=== PATIENT | female | born 1960 | race Caucasian/White ===

== ENCOUNTER 2016-03-23 01:21 | Inpatient (IN) | payer OTHER ==
[~2016-03-23] VITALS: Ht 175.3 cm; Wt 138.0 kg
[2016-03-23] VITALS (14 sets, daily range): BP systolic 122–160; BP diastolic 63–87; PULSE 60–91; RESP 18–46; TEMP 97.6–98.3; O2SAT 95–98
[~2016-03-23 01:21] MED LIST: CALC600T34 PO; CYMB60CA PO; GLUCTAB PO; IBUP800T23 PO; LISI40TA PO; TAB-TAB PO; TRAD5TAB PO
[2016-03-23] MEDS ORDERED: TRAD5TAB PO (01:38)
[2016-03-23] MEDS ORDERED: METF500T PO (01:38)
[2016-03-23] MEDS ORDERED: PROT40TA PO (01:38)
[2016-03-23] MEDS ORDERED: CYMB60CA PO (01:38)
[2016-03-23] MEDS ORDERED: ALPR.5 PO (01:38)
[2016-03-23] MEDS ORDERED: ONDANSETRON HCL 4 MG/2 ML VIAL IV ONE ×2 (01:45→02:30)
[2016-03-23] MEDS ORDERED: INSULIN HUMAN REGULAR 1,000 UNITS/10 ML VIAL IV PUSH ONE (01:45)
[2016-03-23] MEDS: SODIUM CHLOR 0.9% 1000 ML INJ 1,000 ML IV SCH ×2 (01:49→02:30)
[2016-03-23] MEDS ORDERED: SODIUM CHLOR 0.9% 1000 ML INJ 1,000 ML IV ONE (02:21)
--- NOTE | 2016-03-23 02:26 | PD ---
HPI Chief Complaint: Abnormal Results Time Seen by Provider: 01:42 Travel History International Travel<30 days: No Contact w/Intl Traveler<30days: No Traveled to known affect area: No History of Present Illness HPI The patient is a 56-year-old female with a history of diabetes mellitus controlled with Glucophage and Tradjenta who complains of nausea and vomiting Juan morning. She continued to come to work despite polyuria/polydipsia. She comes in [facility] with nausea and a blood sugar of about 500. She is a [facility] patient of Dr. Tamayo. She did not call Dr. Tamayo about this. She states she has never had diabetic ketoacidosis. She does complain of some leg cramps. The patient was on Invokana but this was discontinued 2 months ago because the insurance company had a $200 co-pay. PFSH Past Medical History Cancer: No Cardiovascular Problems: No Diabetes: Yes (TYPE II) Patient Takes Glucophage: Yes (03/22/16 AT 1930) Endocrine: Yes Genitourinary: No Hepatitis: No Hiatal Hernia: No Hypertension: Yes (PREVIOUSLY) Immune Disorder: No Medical other: Yes (FIBROMYALGIA) Musculoskeletal: No Neurologic: No Psychiatric: No Respiratory: No Thyroid Disease: No Tetanus Vaccination: > 5 Years Influenza Vaccination: Yes ?: Not Menopausal: Yes Past Surgical History Abdominal Surgery: Yes (CHOLECYSTECTOMY) Body Medical Devices: NONE Cardiac Surgery: No Section: Yes (X2) Ear Surgery: No Endocrine Surgery: No Eye Surgery: Yes (LASER BILATERAL EYES, IRIDECTOMY R EYE) Genitourinary Surgery: No Gynecologic Surgery: Yes ( X 2, TUBAL LIGATION) Joint Replacement: No Oral Surgery: No Pacemaker: No Thoracic Surgery: No Other Surgery: Yes Social History Alcohol Use: No Tobacco Use: No Substance Use: No Allergies-Medications (Allergen,Severity, Reaction): Coded Allergies: Penicillin (Verified Allergy, Severe, CLOSES THROAT, 03/23/16) Reported Meds & Prescriptions Reported Meds & Active Scripts Active Reported Xanax (Alprazolam) 0.5 Mg Tab 0.5 Mg PO Q8H PRN Protonix (Pantoprazole Sodium) 40 Mg Tab 40 Mg PO DAILY Metformin (Metformin HCl) 500 Mg Tab 500 Mg PO BIDPC With meals Tradjenta (Linagliptin) 5 Mg Tab 5 Mg PO DAILY Ivan DR (Duloxetine HCl) 60 Mg Capdr 60 Mg PO DAILY Review of Systems Except as stated in HPI: all other systems reviewed are Neg Physical Exam Narrative GENERAL: The patient appears moderately to severely dehydrated. She is alert and oriented 3 and cooperative. Her vital signs show blood pressure 155/87 but are otherwise normal. There is no ketotic smell to her breath. SKIN: Warm and dry. HEAD: Atraumatic. Normocephalic. EYES: Pupils equal and round. No scleral icterus. No injection or drainage. ENT: No nasal bleeding or discharge. Mucous membranes pink but dry. NECK: Trachea midline. No JVD. CARDIOVASCULAR: Regular rate and rhythm. No murmur appreciated. RESPIRATORY: No accessory muscle use. Clear to auscultation. Breath sounds equal bilaterally. GASTROINTESTINAL: Abdomen soft, to direct palpation, nondistended. Hepatic and splenic margins not palpable. No guarding or rebound is present. MUSCULOSKELETAL: No obvious deformities. No clubbing. No cyanosis. No edema. NEUROLOGICAL: Awake and alert. No obvious cranial nerve deficits. Motor grossly within normal limits. Normal speech. PSYCHIATRIC: Appropriate mood and affect; insight and judgment normal. Data Data Last Documented VS Vital Signs Date Time Temp Pulse Resp B/P Pulse Ox O2 Delivery O2 Flow Rate FiO2 03/23/16 03:12 86 18 144/77 98 Room Air 03/23/16 01:25 98.1 Orders Sodium Chlor 0.9% 1000 Ml Inj (Ns 1000 M (03/23/16 01:45) Ondansetron Inj (Zofran Inj) (03/23/16 01:45) Insulin Human Regular Inj (Novolin R Inj (03/23/16 01:45) Complete Blood Count With Diff (03/23/16 02:21) Comprehensive Metabolic Panel (03/23/16 02:21) Beta Hydroxybutyrate (Acetone) (03/23/16 02:21) Urinalysis - C+S If Indicated (03/23/16 02:21) Blood Glucose (03/23/16 02:21) Blood Glucose (03/23/16 02:51) Ecg Monitoring (03/23/16 02:21) Iv Access Insert/Monitor (03/23/16 02:21) Oximetry (03/23/16 02:21) NPO (03/23/16 02:21) Sodium Chloride 0.9% Flush (Ns Flush) (03/23/16 02:30) Sodium Chlor 0.9% 1000 Ml Inj (Ns 1000 M (03/23/16 02:21) Ondansetron Inj (Zofran Inj) (03/23/16 02:30) Prochlorperazine Inj (Compazine Inj) (03/23/16 03:15) Insulin Human Regular Inj (Novolin R Inj (03/23/16 03:30) Amylase (03/23/16 01:50) Lipase (03/23/16 01:50) Labs Laboratory Tests Test 03/23/16 01:50 White Blood Count 6.2 TH/MM3 Red Blood Count 5.22 MIL/MM3 Hemoglobin 13.2 GM/DL Hematocrit 41.3 % Mean Corpuscular Volume 79.0 FL Mean Corpuscular Hemoglobin 25.3 PG Mean Corpuscular Hemoglobin 32.1 % Concent Red Cell Distribution Width 13.5 % Platelet Count 226 TH/MM3 Mean Platelet Volume 10.3 FL Neutrophils (%) (Auto) 69.9 % Lymphocytes (%) (Auto) 20.9 % Monocytes (%) (Auto) 7.4 % Eosinophils (%) (Auto) 1.4 % Basophils (%) (Auto) 0.4 % Neutrophils # (Auto) 4.2 TH/MM3 Lymphocytes # (Auto) 1.3 TH/MM3 Monocytes # (Auto) 0.5 TH/MM3 Eosinophils # (Auto) 0.1 TH/MM3 Basophils # (Auto) 0.0 TH/MM3 CBC Comment DIFF FINAL Differential Comment Sodium Level 131 MEQ/L Potassium Level 4.2 MEQ/L Chloride Level 95 MEQ/L Carbon Dioxide Level 24.2 MEQ/L Anion Gap 12 MEQ/L Blood Urea Nitrogen 16 MG/DL Creatinine 1.10 MG/DL Estimat Glomerular Filtration 51 ML/MIN Rate Random Glucose 534 MG/DL Calcium Level 9.0 MG/DL Total Bilirubin 0.4 MG/DL Aspartate Amino Transf 38 U/L (AST/SGOT) Alanine Aminotransferase 62 U/L (ALT/SGPT) Alkaline Phosphatase 104 U/L Total Protein 8.5 GM/DL Albumin 3.4 GM/DL B-Hydroxybutyrate 0.43 MMOL/L [facility] Medical Decision Making Medical Screen Exam Complete: Yes Emergency Medical Condition: Yes Medical Record Reviewed: Yes Interpretation(s) The CBC is normal. The complete metabolic profile shows a sodium of 131, creatinine of 1.1, GFR 51, glucose of 534, AST of 38 and ALT of 62 with total protein of 8.5 but is otherwise normal. The beta hydroxybutyrate is 0.43. Differential Diagnosis Diabetes mellitus poor control, gastroenteritis, diabetic ketoacidosis, pancreatitis, dehydration, electrolyte disorder Narrative Course The patient has diabetes mellitus poor control. This may be as a result of the discontinuing of Invokana. He has intractable vomiting and is on Tradjenta so we will check her for pancreatitis. The patient appears to be moderate to severely dehydrated. Physician Communication Physician Communication I discussed the patient with Dr. Tamayo, the patient will be admitted to him. Diagnosis Primary Impression: Intractable vomiting with nausea Additional Impressions: Poorly controlled diabetes mellitus Moderate dehydration Admitting Information Admitting Physician Requests: Admit Piter Stallings MD Mar 23, 2016 02:26
[2016-03-23] MEDS ORDERED: SODIUM CHLORIDE 0.9% FLUSH 5 ML FLUSH IVF PRN (02:30)
[2016-03-23 02:35] LABS: AUTOMATED NEUTROPHIL # 4.2 TH/MM3 (1.8-7.7); BASOPHIL % 0.4 % (0.0-2.0); EOSINOPHIL # 0.1 TH/MM3 (0-0.4); EOSINOPHIL % 1.4 % (0.0-4.0); HEMATOCRIT 41.3 % (35.0-46.0); HEMO FLAGS DIFF FINAL; LYMPH % 20.9 % (9.0-44.0); LYMPHOCYTE # 1.3 TH/MM3 (1.0-4.8); MEAN CORPUSCULAR HEMOGLOBIN 25.3 PG (27.0-34.0); MEAN CORPUSCULAR HGB CONC 32.1 % (32.0-36.0); MONO % 7.4 % (0.0-8.0); NEUT % 69.9 % (16.0-70.0); PLATELET COUNT 226 TH/MM3 (150-450); RED BLOOD COUNT 5.22 MIL/MM3 (4.00-5.30); RED CELL DISTRIBUTION WIDTH 13.5 % (11.6-17.2); WHITE BLOOD COUNT 6.2 TH/MM3 (4.0-11.0)
[2016-03-23 02:42] LABS: CHLORIDE 95 MEQ/L (98-107); POTASSIUM 4.2 MEQ/L (3.5-5.1); SODIUM (NA) 131 MEQ/L (136-145)
[2016-03-23 02:46] LABS: ANION GAP 12 MEQ/L (5-15); BICARBONATE 24.2 MEQ/L (21.0-32.0); BLOOD UREA NITROGEN 16 MG/DL (7-18)
[2016-03-23 02:48] LABS: ALT (GPT) 62 U/L (10-53)
[2016-03-23 02:49] LABS: AST (GOT) 38 U/L (15-37); GLOMERULAR FILTRATION RATE 51 ML/MIN (>89)
[2016-03-23 02:50] LABS: TOTAL BILIRUBIN ADULT 0.4 MG/DL (0.2-1.0)
[2016-03-23 02:58] LABS: ALKALINE PHOSPHATASE 104 U/L (45-117)
[2016-03-23 03:00] LABS: BETA-HYDROXYBUTYRATE 0.43 MMOL/L (0.00-0.39)
[2016-03-23] MEDS ORDERED: PROCHLORPERAZINE INJ 10 MG/2 ML VIAL IVS ONE (03:15)
[2016-03-23] MEDS ORDERED: INSULIN HUMAN REGULAR 1,000 UNITS/10 ML VIAL IVP ONE ×2 (03:30→04:30)
[2016-03-23 03:58] LABS: AMYLASE 41 U/L (25-115)
[2016-03-23] MEDS: SODIUM CHLOR 0.45% 1000 ML INJ 1,000 ML IV SCH ×2 (05:30→18:09)
[2016-03-23] MEDS ORDERED: PROCHLORPERAZINE INJ 10 MG/2 ML VIAL IV PRN (05:30)
[2016-03-23] MEDS ORDERED: DEXTROSE 50% IN WATER 50 ML VIAL(D50) IV PUSH PRN (05:45)
[2016-03-23] MEDS ORDERED: GLUCAGON 1 MG/ML VIAL OTHER PRN (05:45)
[2016-03-23] MEDS: HIGH DOSE INSULIN NOVOLOG SUPPLEMENTAL SCALE SQ SCH ×4 (06:51→21:12)
[2016-03-23 09:03] LABS: BLOOD, URINE SMALL (NEG); KETONE, URINE NEG (NEG); NITRITE,URINE NEG (NEG); PH, URINE 5.5 (5.0-8.5)
[2016-03-23 09:08] LABS: GLUCOSE,URINE 1000 OR GREATER mg/dL (NEG); METHOD OF COLLECTION CLEAN CATCH; URINE COLOR YELLOW (YELLW/STRAW)
[2016-03-23 09:09] LABS: BACTERIA, URINE MANY /hpf; COMMENT (UR) CULTURE INDICATED; CULTURE IF INDICATED CULTURE INDICATED; SQUAMOUS EPITHELIAL CELL URINE 0-5 /hpf (0-5)
[2016-03-23] MEDS ORDERED: ALPRAZolam 0.5 MG TAB PO PRN (10:15)
--- NOTE | 2016-03-23 10:33 | HHI.HP ---
HPI Service [facility] Hospitalists Primary Care Physician Tamir Duke MD Admission Diagnosis intractable vomiting, dehydration, diabetes mellitus poor control Chief Complaint: 3 days abdominal pain with nausea and vomit Travel History International Travel<30 Days: No Contact w/Intl Traveler <30 Da: No Traveled to Known Affected Are: No History of Present Illness 56 y/o white female with hx diabetes on metformin and trajenat was on invokana with improvement but had to stop due to cost and blood sugar has gone up we will try and find one on formulary . Patient has complained of nausea and vomit with abdominal pain for 3 days not eating well no diarrhea ,presented to er found to have high glucose and continues to have above symptoms and had evidence of dehydration and admitted for fluids in review of er record does have uti as well which could be etiology of her symptoms . Review of Systems Gastrointestinal: COMPLAINS OF: Abdominal pain, Nausea, Vomiting Past Family Social History Past Medical History dm,htn,fibromyagia Past Surgical History gallbladder,irideitemy rt eye Reported Medications xanax,protonix,metformin,trajenat,cymbalta for fibromyalgia Allergies: Coded Allergies: Penicillin (Verified Allergy, Severe, CLOSES THROAT, 03/23/16) Social History NS,ND Physical Exam Vital Signs Vital Signs Date Time Temp Pulse Resp B/P Pulse Ox O2 Delivery O2 Flow Rate FiO2 03/23/16 08:00 97.9 60 22 136/70 95 03/23/16 06:00 77 03/23/16 05:00 91 03/23/16 04:44 83 18 96 03/23/16 04:14 82 18 122/63 97 Room Air 03/23/16 03:12 86 18 144/77 98 Room Air 03/23/16 02:33 18 96 Room Air 03/23/16 02:04 84 18 96 Room Air 03/23/16 02:00 86 18 158/78 96 Room Air 03/23/16 01:25 98.1 86 18 155/87 95 Physical Exam GENERAL: This is a well-nourished, well-developed patient, in no apparent distress. SKIN: No rashes, ecchymoses or lesions. Cool and dry. HEAD: Atraumatic. Normocephalic. No temporal or scalp tenderness. EYES: Pupils equal round and reactive. Extraocular motions intact. No scleral icterus. No injection or drainage. ENT: Nose without bleeding, purulent drainage or septal hematoma. Throat without erythema, tonsillar hypertrophy or exudate. Uvula midline. Airway patent. NECK: Trachea midline. No JVD or lymphadenopathy. Supple, nontender, no meningeal signs. CARDIOVASCULAR: Regular rate and rhythm without murmurs, gallops, or rubs. RESPIRATORY: Clear to auscultation. Breath sounds equal bilaterally. No wheezes , rales, or rhonchi. GASTROINTESTINAL: Abdomen soft, non-tender, nondistended. No hepato-splenomegaly , or palpable masses. No guarding. MUSCULOSKELETAL: Extremities without clubbing, cyanosis, or edema. No joint tenderness, effusion, or edema noted. No calf tenderness. Negative Homans sign bilaterally. NEUROLOGICAL: Awake and alert. Cranial nerves II through XII intact. Motor and sensory grossly within normal limits. Five out of 5 muscle strength in all muscle groups. Normal speech. Laboratory Laboratory Tests Test 03/23/16 03/23/16 01:50 08:45 White Blood Count 6.2 Red Blood Count 5.22 Hemoglobin 13.2 Hematocrit 41.3 Mean Corpuscular Volume 79.0 Mean Corpuscular Hemoglobin 25.3 Mean Corpuscular Hemoglobin 32.1 Concent Red Cell Distribution Width 13.5 Platelet Count 226 Mean Platelet Volume 10.3 Neutrophils (%) (Auto) 69.9 Lymphocytes (%) (Auto) 20.9 Monocytes (%) (Auto) 7.4 Eosinophils (%) (Auto) 1.4 Basophils (%) (Auto) 0.4 Neutrophils # (Auto) 4.2 Lymphocytes # (Auto) 1.3 Monocytes # (Auto) 0.5 Eosinophils # (Auto) 0.1 Basophils # (Auto) 0.0 CBC Comment DIFF FINAL Differential Comment Sodium Level 131 Potassium Level 4.2 Chloride Level 95 Carbon Dioxide Level 24.2 Anion Gap 12 Blood Urea Nitrogen 16 Creatinine 1.10 Estimat Glomerular Filtration 51 Rate Random Glucose 534 Calcium Level 9.0 Total Bilirubin 0.4 Aspartate Amino Transf 38 (AST/SGOT) Alanine Aminotransferase 62 (ALT/SGPT) Alkaline Phosphatase 104 Total Protein 8.5 Albumin 3.4 Amylase Level 41 Lipase 199 B-Hydroxybutyrate 0.43 Urine Collection Type CLEAN CATCH Urine Color YELLOW Urine Turbidity SLIGHT Urine pH 5.5 Urine Specific [place] 1.030 Urine Protein NEG Urine Glucose (UA) 1000 OR GREATER Urine Ketones NEG Urine Occult Blood SMALL Urine Nitrite NEG Urine Bilirubin NEG Urine Leukocyte Esterase TRACE Urine RBC 10-14 Urine WBC 50-99 Urine WBC Clumps MOD Urine Squamous Epithelial 0-5 Cells Urine Bacteria MANY Microscopic Urinalysis Comment CULTURE INDICATED Urine Collection Time 08:45 Date/Time Procedure Status Source Growth 03/23/16 08:45 Urine Culture Received Urine Clean Catch Pending Result Diagram: 03/23/16 0150 03/23/16 0150 Course admit from er Assessment and Plan Problem List: (1) Intractable vomiting with nausea Status: Acute Plan: receiving zofran feeling a little better will advance to full liquids and then 1800 ada (2) Moderate dehydration Status: Acute Plan: IV fluid (3) Poorly controlled diabetes mellitus Status: Chronic Plan: use sliding scale continue home meds will find med thru [facility] she can add (4) UTI (urinary tract infection) Status: Acute Plan: start levaquin 500 IV a day and can change to cipro as outpatient allergic to pcn Assessment and Plan as above Code Status full Discussed Condition With patient Physician Certification 2 Midnight Certification Type: Admission for Inpatient Services Order for Inpatient Services The services are ordered in accordance with Medicare regulations or non- Medicare payer requirements, as applicable. In the case of services not specified as inpatient-only, they are appropriately provided as inpatient services in accordance with the 2-midnight benchmark. Estimated LOS (days): 2 2 days is the estimated time the patient will need to remain in the hospital, assuming treatment plan goals are met and no additional complications. Post-Hospital Plan: Home Tamir Duke MD Mar 23, 2016 10:33
[2016-03-23] MEDS: LEVOFLOXACIN 500 MG PREMIX INJ 100 ML IV SCH (11:36)
--- NOTE | 2016-03-23 16:11 | RADHPO ---
EXAM DATE/TIME: 03/23/2016 15:37 [place] COMPARISON: No previous studies available for comparison. INDICATIONS : Flank pain, urinary tract infection. MEDICAL HISTORY : Diabetes mellitus type 2. Fibromyalgia. SURGICAL HISTORY : Cholecystectomy. section. Tubal ligation. Eye surgery. ENCOUNTER: Initial ACUITY: 1 day PAIN SCORE: 0/10 LOCATION: Bilateral flank MEASUREMENTS: RIGHT KIDNEY: 13.1 x 4.6 x 4.9 cm LEFT KIDNEY: 13.5 x 5.9 x 6.3 cm FINDINGS: RIGHT KIDNEY: Renal cortex is normal in thickness and echotexture. No hydronephrosis, stone, or mass. LEFT KIDNEY: Renal cortex is normal in thickness and echotexture. No hydronephrosis, stone, or mass. BLADDER: Within normal limits given the degree of distension. CONCLUSION: Normal examination for a patient of this age. Clyde Contreras MD on March 23, 2016 at 16:04 Board Certified Radiologist. This report was verified electronically.
[2016-03-23] MEDS ORDERED: traMADol HCL 50 MG TAB PO PRN (18:00)
[2016-03-23] MEDS: metFORMIN HCL 500 MG TAB PO SCH (18:09)
[2016-03-23] MEDS: traMADol HCL 50 MG TAB PO PRN (23:44)
[2016-03-24] VITALS: BP 135/57; PULSE 64; RESP 18; TEMP 98; O2SAT 95
[2016-03-24] MEDS: HIGH DOSE INSULIN NOVOLOG SUPPLEMENTAL SCALE SQ SCH ×3 (02:51→12:12)
[2016-03-24] MEDS: SODIUM CHLOR 0.45% 1000 ML INJ 1,000 ML IV SCH ×2 (02:52→11:30)
[2016-03-24 03:00] VITALS: BP 120/65; PULSE 61; RESP 18; TEMP 98.2; O2SAT 95
[2016-03-24 04:49] LABS: AUTOMATED NEUTROPHIL # 2.6 TH/MM3 (1.8-7.7); BASOPHIL % 0.6 % (0.0-2.0); EOSINOPHIL # 0.1 TH/MM3 (0-0.4); EOSINOPHIL % 2.5 % (0.0-4.0); HEMO FLAGS DIFF FINAL; LYMPH % 31.6 % (9.0-44.0); LYMPHOCYTE # 1.4 TH/MM3 (1.0-4.8); MEAN CELL VOLUME 78.6 FL (80.0-100.0); MEAN CORPUSCULAR HGB CONC 33.1 % (32.0-36.0); MONO % 7.2 % (0.0-8.0); NEUT % 58.1 % (16.0-70.0); PLATELET COUNT 199 TH/MM3 (150-450); RED BLOOD COUNT 4.33 MIL/MM3 (4.00-5.30); RED CELL DISTRIBUTION WIDTH 12.9 % (11.6-17.2); WHITE BLOOD COUNT 4.4 TH/MM3 (4.0-11.0)
[2016-03-24 05:09] LABS: BICARBONATE 26.8 MEQ/L (21.0-32.0); POTASSIUM 4.1 MEQ/L (3.5-5.1)
[2016-03-24] MEDS: traMADol HCL 50 MG TAB PO PRN (06:40)
--- NOTE | 2016-03-24 08:31 | HHI.DS ---
Discharge Summary Admission Date Mar 23, 2016 at 03:50 Admitting Diagnosis intractable vomiting, dehydration, diabetes mellitus poor control (1) Intractable vomiting with nausea (2) Moderate dehydration Diagnosis: Principal (3) Poorly controlled diabetes mellitus Diagnosis: Principal (4) UTI (urinary tract infection) Diagnosis: Principal Brief History 56 y/o white female with hx diabetes on metformin and trajenat was on invokana with improvement but had to stop due to cost and blood sugar has gone up we will try and find one on formulary . Patient has complained of nausea and vomit with abdominal pain for 3 days not eating well no diarrhea ,presented to er found to have high glucose and continues to have above symptoms and had evidence of dehydration and admitted for fluids in review of er record does have uti as well which could be etiology of her symptoms . CBC/BMP: 03/24/16 0435 03/24/16 0435 Significant Findings Laboratory Tests Test 03/23/16 03/23/16 03/24/16 01:50 08:45 04:35 Mean Corpuscular Volume 79.0 FL 78.6 FL (80.0-100.0) (80.0-100.0) Mean Corpuscular Hemoglobin 25.3 PG 26.0 PG (27.0-34.0) (27.0-34.0) Sodium Level 131 MEQ/L (136-145) Chloride Level 95 MEQ/L (98-107) Creatinine 1.10 MG/DL (0.50-1.00) Estimat Glomerular Filtration 51 ML/MIN (>89) 78 ML/MIN (>89) Rate Random Glucose 534 MG/DL 197 MG/DL (74-106) (74-106) Aspartate Amino Transf 38 U/L (15-37) (AST/SGOT) Alanine Aminotransferase 62 U/L (10-53) (ALT/SGPT) Total Protein 8.5 GM/DL (6.4-8.2) B-Hydroxybutyrate 0.43 MMOL/L (0.00-0.39) Urine Glucose (UA) 1000 OR GREATER mg/dL (NEG) Urine Occult Blood SMALL (NEG) Urine Leukocyte Esterase TRACE (NEG) Urine RBC 10-14 /hpf (0-3) Urine WBC 50-99 /hpf (0-5) Urine WBC Clumps MOD (NONE) Urine Bacteria MANY /hpf (NONE) Hemoglobin 11.2 GM/DL (11.6-15.3) Hematocrit 34.0 % (35.0-46.0) Calcium Level 8.2 MG/DL (8.5-10.1) Imaging renal ultrasound normal PE at Discharge GENERAL: SKIN: Warm and dry. HEAD: Atraumatic. Normocephalic. EYES: Pupils equal and round. No scleral icterus. No injection or drainage. ENT: No nasal bleeding or discharge. Mucous membranes pink and moist. NECK: Trachea midline. No JVD. CARDIOVASCULAR: Regular rate and rhythm. RESPIRATORY: No accessory muscle use. Clear to auscultation. Breath sounds equal bilaterally. GASTROINTESTINAL: Abdomen soft, non-tender, nondistended. Hepatic and splenic margins not palpable. MUSCULOSKELETAL: Extremities without clubbing, cyanosis, or edema. No obvious deformities. NEUROLOGICAL: Awake and alert. No obvious cranial nerve deficits. Motor grossly within normal limits. Five out of 5 muscle strength in the arms and legs. Normal speech. PSYCHIATRIC: Appropriate mood and affect; insight and judgment normal. Hospital Course Patiewnt admitted with nausea vomit abdominal pain received IV fluid ,started on levaquin as had uti and had normal renal ultrasound lab studies were normal. Patient did well abdominal pain resolved . Was on sliding scale and on discharge will add jardiance 25 to meds samples and prescription will be given with follow up from my office. Patient to be discharged in good condition. Pt Condition on Discharge: Good Discharge Disposition: Discharge Home Discharge Instructions DIET: Follow Instructions for: Diabetic Diet Activities you can perform: Regular-No Restrictions Continued Medications: Alprazolam (Xanax) 0.5 Mg Tab 0.5 MG PO Q8H PRN ANXIETY Ref [address] (Cymbalta DR) 60 Mg Capdr 60 MG PO DAILY #30 Ref 0 CAP Linagliptin (Tradjenta) 5 Mg Tab 5 MG PO DAILY Blood Sugar Management #30 Ref 0 TAB Metformin (Metformin) 500 Mg Tab 500 MG PO BIDPC With meals Blood Sugar Management #60 Ref 0 TAB Pantoprazole (Protonix) 40 Mg Tab 40 MG PO DAILY Reflux #30 Ref 0 TAB Additional Information follow up 1 week with me start sample med when picked up at office. OK to return to work monday03/28/16 Tamir Duke MD Mar 24, 2016 08:31
[2016-03-24] MEDS ORDERED: PATIENT OWN: (Linagliptin (Tradjenta) 5 MG) PO SCH (09:00)
[2016-03-24] MEDS ORDERED: DULoxetine HCl DR 60 MG CAP PO SCH (09:00)
[2016-03-24] MEDS ORDERED: PANTOPRAZOLE SOD 40 MG DELAYED RELEASE TAB PO SCH (09:00)
[2016-03-24] MEDS: LEVOFLOXACIN 500 MG PREMIX INJ 100 ML IV SCH (09:15)
[2016-03-24] MEDS: metFORMIN HCL 500 MG TAB PO SCH (09:15)
[2016-03-24 09:22] VITALS: BP 135/85; PULSE 78; RESP 35; TEMP 97.8
[2016-03-24 12:15] VITALS: PULSE 72; RESP 12; O2SAT 99
== END 2016-03-24 14:51 | disposition home or self-care (01) | DRG 638 ==
LOC: PHED 01:21 → PHEDA 03:50 → PHICU 04:39
PROVIDERS: ADMIT Internal Medicine; ATTEND Internal Medicine
DX: E11.65 Type 2 diabetes mellitus with hyperglycemia (principal); N39.0 Urinary tract infection, site not specified; E86.0 Dehydration; R11.2 Nausea with vomiting, unspecified; M79.7 Fibromyalgia; Z88.0 Allergy status to penicillin; Z79.84 Long term (current) use of oral hypoglycemic drugs
CPT/HCPCS: 76775; 80048; 80053; 81001; 82010; 82150; 83690; 85025; 87077; 87086; 87186; 96361; 96374; 96375; 96376; J0780; J1815; J1956; J2405; J7030

== ENCOUNTER 2017-02-20 01:12 | Emergency (ER) | payer OTHER ==
[~2017-02-20] VITALS: Ht 175.3 cm; Wt 136.8 kg
[2017-02-20] VITALS (7 sets, daily range): BP systolic 103–190; BP diastolic 57–87; PULSE 58–70; RESP 16–22; TEMP 98; O2SAT 97–99
[~2017-02-20 01:12] MED LIST changes: +ALPR.5 PO; -CALC600T34 PO; -GLUCTAB PO; -IBUP800T23 PO; -LISI40TA PO; +METF500T PO; +PROT40TA PO; -TAB-TAB PO
[2017-02-20] MEDS ORDERED: SODIUM CHLOR 0.9% 1000 ML INJ 1,000 ML IV SCH (01:31)
[2017-02-20] MEDS ORDERED: EMPA1TAB PO (01:37)
[2017-02-20] MEDS ORDERED: THRIVE TOPICAL (01:37)
--- NOTE | 2017-02-20 01:42 | PD ---
HPI Chief Complaint: Pain: Acute or Chronic Time Seen by Provider: 01:30 Travel History International Travel<30 days: No Contact w/Intl Traveler<30days: No Traveled to known affect area: No History of Present Illness HPI 57-year-old female presents to the emergency department for evaluation of abdominal pain with nausea and vomiting and hyperglycemia. 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 Patient does not report any fever or chills. Patient denies chest pain or shortness of breath. No report of bilious emesis hematemesis or coffee- ground emesis. Patient is status post cholecystectomy. Patient denies previous history of gastritis peptic ulcer disease or pancreatitis. No report of injury. Patient does have history of gastroparesis with states her symptoms are different. Patient rates her pain as 8/10 intensity. Patient describes her pain is bandlike. Patient is unable to identify exacerbating or alleviating factors. Patient denies tobacco use alcohol use or substance use. Patient has taken no medication for pain relief and states she typically only takes Tylenol. PFSH Past Medical History Narrative Medical Hypertension diabetes tonsillectomy cholecystectomy no tobacco use no alcohol use no substance use; nursing notes reviewed Cancer: No Cardiovascular Problems: No Diabetes: Yes Endocrine: Yes Genitourinary: No Hepatitis: No Hiatal Hernia: No Hypertension: Yes (PREVIOUSLY) Immune Disorder: No Musculoskeletal: No Neurologic: No Psychiatric: No Respiratory: No Thyroid Disease: No Menopausal: Yes Past Surgical History Abdominal Surgery: Yes (CHOLECYSTECTOMY) Body Medical Devices: NONE Cardiac Surgery: No Section: Yes (X2) Ear Surgery: No Endocrine Surgery: No Eye Surgery: Yes (LASER BILATERAL EYES, IRIDECTOMY R EYE) Genitourinary Surgery: No Gynecologic Surgery: Yes ( X 2, TUBAL LIGATION) Joint Replacement: No Oral Surgery: No Pacemaker: No Thoracic Surgery: No Other Surgery: Yes Social History Alcohol Use: No Tobacco Use: No Substance Use: No Allergies-Medications (Allergen,Severity, Reaction): Coded Allergies: penicillin G (Unverified Allergy, Severe, CLOSES THROAT, 02/20/17) Reported Meds & Prescriptions Reported Meds & Active Scripts Active Reported [Thrive ] TOPICAL Jardiance (Empagliflozin) 10 Mg Tab 10 Mg PO DAILY Xanax (Alprazolam) 0.5 Mg Tab 0.5 Mg PO Q8H PRN Protonix (Pantoprazole Sodium) 40 Mg Tab 40 Mg PO DAILY Metformin (Metformin HCl) 500 Mg Tab 1,000 Mg PO BIDPC With meals Cymbalta DR (Duloxetine HCl) 60 Mg Capdr 60 Mg PO DAILY Review of Systems Except as stated in HPI: all other systems reviewed are Neg Physical Exam Narrative GENERAL: Well-developed well-nourished female in no acute distress no respiratory distress SKIN: Warm and dry. HEAD: Normocephalic. EYES: No scleral icterus. No injection or drainage. NECK: Supple, trachea midline. No JVD or lymphadenopathy. CARDIOVASCULAR: Regular rate and rhythm without murmurs, gallops, or rubs. RESPIRATORY: Breath sounds equal bilaterally. No accessory muscle use. GASTROINTESTINAL: Abdomen soft, epigastric tenderness to palpation without guarding or rebound, nondistended. MUSCULOSKELETAL: No cyanosis, or edema. BACK: Nontender without obvious deformity. No CVA tenderness. Data Data Last Documented VS Vital Signs Date Time Temp Pulse Resp B/P (MAP) Pulse Ox O2 Delivery O2 Flow Rate FiO2 02/20/17 03:12 58 20 108/61 (77) 98 02/20/17 01:36 Room Air 02/20/17:17 98.0 Orders Orders Complete Blood Count With Diff (02/20/17 01:31) Comprehensive Metabolic Panel (02/20/17 01:31) Lipase (02/20/17 01:31) Urinalysis - C+S If Indicated (02/20/17 01:31) Iv Access Insert/Monitor (02/20/17 01:31) Ecg Monitoring (02/20/17 01:31) Oximetry (02/20/17 01:31) Ondansetron Inj (Zofran Inj) (02/20/17 01:45) Sodium Chlor 0.9% 1000 Ml Inj (Ns 1000 M (02/20/17 01:31) Sodium Chloride 0.9% Flush (Ns Flush) (02/20/17 01:45) Electrocardiogram (02/20/17 01:31) Chest, Single Ap (02/20/17 01:31) Morphine Inj (Morphine Inj) (02/20/17 01:45) Pantoprazole Inj (Protonix Inj) (12/4/17 01:45) Troponin I (02/20/17 01:31) Magnesium (Mg) (02/20/17 01:31) Hydromorphone Pf Inj (Dilaudid Pf Inj) (02/20/17 02:30) Ct Abd/Pel W Iv Contrast(Rout) (02/20/17 ) Iohexol 350 Inj (Omnipaque 350 Inj) (02/20/17 03:06) Labs Laboratory Tests Test 02/20/17 01:30 02/20/17 01:31 White Blood Count 4.8 TH/MM3 Red Blood Count 4.94 MIL/MM3 Hemoglobin 12.7 GM/DL Hematocrit 40.5 % Mean Corpuscular Volume 81.8 FL Mean Corpuscular Hemoglobin 25.8 PG Mean Corpuscular Hemoglobin Concent 31.5 % Red Cell Distribution Width 13.2 % Platelet Count 231 TH/MM3 Mean Platelet Volume 9.1 FL Neutrophils (%) (Auto) 59.9 % Lymphocytes (%) (Auto) 29.8 % Monocytes (%) (Auto) 7.6 % Eosinophils (%) (Auto) 2.1 % Basophils (%) (Auto) 0.6 % Neutrophils # (Auto) 2.9 TH/MM3 Lymphocytes # (Auto) 1.4 TH/MM3 Monocytes # (Auto) 0.4 TH/MM3 Eosinophils # (Auto) 0.1 TH/MM3 Basophils # (Auto) 0.0 TH/MM3 CBC Comment DIFF FINAL Differential Comment Blood Urea Nitrogen 18 MG/DL Creatinine 0.82 MG/DL Random Glucose 328 MG/DL Total Protein 8.4 GM/DL Albumin 3.2 GM/DL Calcium Level 8.5 MG/DL Magnesium Level 2.0 MG/DL Alkaline Phosphatase 103 U/L Aspartate Amino Transf (AST/SGOT) 66 U/L Alanine Aminotransferase (ALT/SGPT) 120 U/L Total Bilirubin 0.3 MG/DL Sodium Level 131 MEQ/L Potassium Level 3.8 MEQ/L Chloride Level 97 MEQ/L Carbon Dioxide Level 27.2 MEQ/L Anion Gap 7 MEQ/L Estimat Glomerular Filtration Rate 72 ML/MIN Troponin I LESS THAN 0.02 NG/ML Lipase 323 U/L Urine Collection Type VOIDED Urine Color STRAW Urine Turbidity CLEAR Urine pH 5.0 Urine Specific Flanagan GREATER THAN 1.035 Urine Protein NEG mg/dL Urine Glucose (UA) 1000 OR GREATER mg/dL Urine Ketones NEG mg/dL Urine Occult Blood NEG Urine Nitrite NEG Urine Bilirubin NEG Urine Leukocyte Esterase NEG Urine WBC 3-5 /hpf Urine Squamous Epithelial Cells 0-1 /hpf Microscopic Urinalysis Comment CULT NOT INDICATED MDM Medical Decision Making Medical Screen Exam Complete: Yes Emergency Medical Condition: Yes Medical Record Reviewed: Yes Interpretation(s) EKG: Normal sinus rhythm rate [address] elevation injury pattern or ectopy noted CT a/p: CONCLUSION: 1. Multiple bilateral noncalcified pulmonary nodules in the lung bases of concern for possible metastatic disease. Grossly unremarkable bowel gas pattern with no evidence of obstruction or inflammatory change. 2. Moderate hepatic steatosis. 3. Status post cholecystectomy. Edwardo Guy MD on February 20, 2017 at 3:49 Board Certified Radiologist. This report was verified electronically. Differential Diagnosis Abdominal pain, gastritis peptic ulcer disease gastroparesis pancreatitis choledocholithiasis uncontrolled diabetes dehydration gastroenteritis viral syndrome Narrative Course Patient placed on lunchroom monitor IV access obtained specimens collected and sent for resulting; Zofran 4 mg IV ordered along with morphine 3 mg IV and IV fluid bolus; bedside glucose 306; EKG sinus rhythm with no acute ST elevation injury pattern or ectopy noted @ 3:10 am patient reassessed ---reproducible epigastric tenderness to palpation @ 4:30 AM patient reassessed and taking oral hydration well and urinalysis shows elevated specific gravity with glucosuria otherwise unremarkable no ketones and patient is desirous of being discharged to home and does not want any further IV fluid is taking oral hydration well no further nausea no vomiting and epigastric pain is controlled. Patient will be given all of outpatient management with clear liquid diet for the first 12-24 hours then advance as tolerated to bland diet and regular diet following ADA guidelines. Patient given prescription for Carafate for gastritis and Zofran for nausea vomiting. Diagnosis Primary Impression: Acute gastritis Additional Impression: Hyperglycemia due to type 2 diabetes mellitus Referrals: Primary Care Physician 1 day Patient Instructions: General Instructions, Narcotic given in the ED Departure Forms: Tests/Procedures, Work Release Special Instructions: no work x 2 days Additional Instructions: Follow-up with your primary care provider call office in a.m. to schedule follow -up appointment Takes Zofran as prescribed as needed for nausea and/or vomiting For Carafate as prescribed for gastric inflammation Continue chronic medications as chronically prescribed Return to the emergency department for any concerns or change in condition Monitor blood sugars closely Recommend clear liquid diet for next 12-24 hours advance as tolerated to bland diet and then regular diet following ADA guidelines Med/Other Pt SpecificInfo: Prescription(s) given Scripts Sucralfate Liq (Carafate Liq) 1 Gm/10 Ml Susp 1 GM PO Q6HR for Duodenal ulcer for 7 Days, #1200 ML 0 Refills on empty stomach Prov: Mimi Ryan MD 02/20/17 Ondansetron Odt (Zofran Odt) 4 Mg Tab 4 MG SL Q6HR Y for Nausea/Vomiting, #15 TAB 0 Refills Prov: Mimi Ryan MD 02/20/17 Disposition: 01 DISCHARGE HOME Condition: Stable Mimi Ryan MD Feb 20, 2017 01:42
[2017-02-20] MEDS ORDERED: PANTOPRAZOLE SODIUM 40 MG VIAL IV PUSH ONE (01:45)
[2017-02-20] MEDS ORDERED: ONDANSETRON HCL 4 MG/2 ML VIAL IVP ONE (01:45)
[2017-02-20] MEDS ORDERED: MORPHINE SULFATE 4 MG/ML INJ IV PUSH ONE (01:45)
[2017-02-20] MEDS ORDERED: SODIUM CHLORIDE 0.9% FLUSH 10 ML FLUSH IV FLUSH PRN (01:45)
--- NOTE | 2017-02-20 01:54 | RADRPT ---
EXAM DATE/TIME: 02/20/2017 01:43 [facility] COMPARISON: No previous studies available for comparison. INDICATIONS : Chest pain. MEDICAL HISTORY : Hypertension. SURGICAL HISTORY : None. ENCOUNTER: Initial ACUITY: 1 day PAIN SCORE: 8/10 LOCATION: Bilateral chest FINDINGS: A single AP semierect view of the chest demonstrates the lungs to be symmetrically aerated without ev idence of mass, infiltrate or effusion. There is mild streaky atelectasis and/or scarring over the r ight lung base. The heart size is at the upper limits of normal. Osseous structures are intact. Ther e are multiple overlying electrocardiogram leads. CONCLUSION: 1. Mild atelectasis or scarring projected over the right lung base. 2. The heart size is at the upper limits of normal. Edwardo Guy MD on February 20, 2017 at 1:52 Board Certified Radiologist. This report was verified electronically.
[2017-02-20 01:59] LABS: AUTOMATED NEUTROPHIL # 2.9 TH/MM3 (1.8-7.7); BASOPHIL % 0.6 % (0.0-2.0); EOSINOPHIL # 0.1 TH/MM3 (0-0.4); EOSINOPHIL % 2.1 % (0.0-4.0); HEMATOCRIT 40.5 % (35.0-46.0); HEMO FLAGS DIFF FINAL; LYMPH % 29.8 % (9.0-44.0); LYMPHOCYTE # 1.4 TH/MM3 (1.0-4.8); MEAN CELL VOLUME 81.8 FL (80.0-100.0); MEAN CORPUSCULAR HEMOGLOBIN 25.8 PG (27.0-34.0); MEAN CORPUSCULAR HGB CONC 31.5 % (32.0-36.0); MONO % 7.6 % (0.0-8.0); NEUT % 59.9 % (16.0-70.0); PLATELET COUNT 231 TH/MM3 (150-450); RED BLOOD COUNT 4.94 MIL/MM3 (4.00-5.30); RED CELL DISTRIBUTION WIDTH 13.2 % (11.6-17.2); WHITE BLOOD COUNT 4.8 TH/MM3 (4.0-11.0)
[2017-02-20 02:09] LABS: CHLORIDE 97 MEQ/L (98-107); POTASSIUM 3.8 MEQ/L (3.5-5.1); SODIUM (NA) 131 MEQ/L (136-145)
[2017-02-20 02:13] LABS: ANION GAP 7 MEQ/L (5-15); BICARBONATE 27.2 MEQ/L (21.0-32.0); BLOOD UREA NITROGEN 18 MG/DL (7-18)
[2017-02-20 02:16] LABS: ALT (GPT) 120 U/L (10-53); AST (GOT) 66 U/L (15-37); GLOMERULAR FILTRATION RATE 72 ML/MIN (>89)
[2017-02-20 02:18] LABS: TOTAL BILIRUBIN ADULT 0.3 MG/DL (0.2-1.0)
[2017-02-20 02:19] LABS: ALKALINE PHOSPHATASE 103 U/L (45-117)
[2017-02-20] MEDS ORDERED: HYDROmorphone HCL PF 1 MG/ML VIAL IV PUSH ONE (02:30)
[2017-02-20] MEDS ORDERED: IOHEXOL 350 MG/ML 10 ML VIAL (for RAD DIAG) IVCONTRAST ONE (03:06)
--- NOTE | 2017-02-20 03:53 | RADRPT ---
EXAM DATE/TIME: 02/20/2017 02:45 [facility] COMPARISON: No previous studies available for comparison. INDICATIONS : Abdominal pain. Nausea. Vomiting. IV CONTRAST: 90 cc Omnipaque 350 (iohexol) IV ORAL CONTRAST: No oral contrast ingested. RADIATION DOSE: 22.38 CTDIvol (mGy) MEDICAL HISTORY : Gastroparesis. Diabetes mellitus type 2. SURGICAL HISTORY : Cholecystectomy. section.Tubal ligation. ENCOUNTER: Initial ACUITY: 1 day PAIN SCALE: 7/10 LOCATION: Bilateral upper quadrant lower quadrant. TECHNIQUE: Volumetric scanning of the abdomen and pelvis was performed. Using automated exposure control and ad justment of the mA and/or kV according to patient size, radiation dose was kept as low as reasonably achievable to obtain optimal diagnostic quality images. DICOM format image data is available electro nically for review and comparison. FINDINGS: LOWER LUNGS: Multiple bilateral noncalcified pulmonary nodules. LIVER: Homogeneous density without lesion. There is no dilation of the biliary tree. There is moderate hepa tic steatosis. The patient is status post cholecystectomy. SPLEEN: Normal size without lesion. PANCREAS: Within normal limits. KIDNEYS: Normal in size and shape. There is no mass, stone or hydronephrosis. ADRENAL GLANDS: Within normal limits. VASCULAR: There is no aortic aneurysm. BOWEL/MESENTERY: No oral contrast was given limiting the sensitivity of the exam. The stomach, small bowel, and colon demonstrate no acute abnormality. There is no free intraperitoneal air or fluid. ABDOMINAL WALL: Within normal limits. RETROPERITONEUM: There is no lymphadenopathy. BLADDER: No wall thickening or mass. REPRODUCTIVE: Within normal limits. INGUINAL: There is no lymphadenopathy or hernia. MUSCULOSKELETAL: Within normal limits for patient age. CONCLUSION: 1. Multiple bilateral noncalcified pulmonary nodules in the lung bases of concern for possible metast atic disease. Grossly unremarkable bowel gas pattern with no evidence of obstruction or inflammatory change. 2. Moderate hepatic steatosis. 3. Status post cholecystectomy. Edwardo Guy MD on February 20, 2017 at 3:49 Board Certified Radiologist. This report was verified electronically.
[2017-02-20 04:17] LABS: BLOOD, URINE NEG (NEG); GLUCOSE,URINE 1000 OR GREATER mg/dL (NEG); KETONE, URINE NEG (NEG); NITRITE,URINE NEG (NEG)
[2017-02-20 04:27] LABS: METHOD OF COLLECTION VOIDED; URINE COLOR STRAW (YELLW/STRAW)
[2017-02-20 04:28] LABS: COMMENT (UR) CULT NOT INDICATED; CULTURE IF INDICATED CULT NOT INDICATED; SQUAMOUS EPITHELIAL CELL URINE 0-1 /hpf (0-5)
[2017-02-20] MEDS ORDERED: ZOFR4TAB3 SL (05:13)
[2017-02-20] MEDS ORDERED: CARA1SUS3 PO (05:13)
--- NOTE | 2017-02-20 19:25 | EKG ---
Date Performed: 02/20/2017 Time Performed: 01:40:02 PTAGE: 57 years EKG: Sinus rhythm Since previous tracing, no significant change noted NORMAL ECG PREVIOUS TRACING : 07/14/2014 08.29 DOCTOR: Carolyn Loyd Interpretating Date/Time 02/20/2017 19:24:42
== END 2017-02-20 05:35 | disposition home or self-care (01) ==
LOC: PHED 01:12
DX: K29.00 Acute gastritis without bleeding (principal); E11.65 Type 2 diabetes mellitus with hyperglycemia; K76.0 Fatty (change of) liver, not elsewhere classified; R91.8 Other nonspecific abnormal finding of lung field; E11.43 Type 2 diabetes mellitus with diabetic autonomic (poly)neuropathy; K31.84 Gastroparesis; R10.13 Epigastric pain; Z79.84 Long term (current) use of oral hypoglycemic drugs; Z90.49 Acquired absence of other specified parts of digestive tract
CPT/HCPCS: 71010; 74177; 80053; 81001; 83690; 83735; 84484; 85025; 93005; 96361; 96374; 96375; 99285; C9113; J1170; J2270; J2405; J7030; Q9967